=== PATIENT | male | born 1980 | race Caucasian/White ===

== ENCOUNTER 2017-04-29 22:24 | Emergency (ER) | payer OTHER ==
[2017-04-29] MEDS ORDERED: Tetracaine 0.5% 2 ML Bottle ONE (22:35)
[2017-04-29] MEDS ORDERED: Fluorescein 1 MG Ophth Strip ONE (22:35)
[2017-04-29 22:46] VITALS: BP 129/79
[2017-04-29] MEDS ORDERED: Ciprofloxacin 0.3% Ophth Soln 2.5 ML Bottle ONE (23:00)
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
== END 2017-04-29 23:35 | disposition home or self-care (01) ==
LOC: LB.ED 22:24
DX: T26.11XA Burn of cornea and conjunctival sac, right eye, initial encounter (principal); X12.XXXA Contact with other hot fluids, initial encounter; Y93.G3 Activity, cooking and baking; Y92.89 Other specified places as the place of occurrence of the external cause; Y99.0 Civilian activity done for income or pay; F17.210 Nicotine dependence, cigarettes, uncomplicated; Z85.47 Personal history of malignant neoplasm of testis; Z79.899 Other long term (current) drug therapy; Z91.030 Bee allergy status
CPT/HCPCS: 99283; A9270

== ENCOUNTER 2017-04-30 09:25 | Emergency (ER) | payer OTHER ==
[2017-04-30] MEDS ORDERED: Tetracaine 0.5% 2 ML Bottle ONE (17:50)
[2017-04-30 17:54] VITALS: BP 145/80
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
== END 2017-04-30 18:09 | disposition home or self-care (01) ==
LOC: LB.ED 09:25
DX: T26.11XA Burn of cornea and conjunctival sac, right eye, initial encounter (principal); K21.9 Gastro-esophageal reflux disease without esophagitis; Z91.030 Bee allergy status; Z79.899 Other long term (current) drug therapy; Z98.890 Other specified postprocedural states; Z87.891 Personal history of nicotine dependence
CPT/HCPCS: 99282; 99283

== ENCOUNTER 2019-01-30 11:32 | Emergency (ER) | payer OTHER ==
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
--- NOTE | 2019-01-30 14:43 | CR ---
PA AND LATERAL CHEST, 01/30/19 Comparison was made to a prior exam dated 10/17/15. The heart size is normal. The lungs are clear. No pneumothorax. No pleural effusions. No evidence of acute intrathoracic disease. [id number] [facility]
== END 2019-01-30 13:33 | disposition home or self-care (01) ==
LOC: LB.ED 11:32
DX: J01.90 Acute sinusitis, unspecified (principal); F41.9 Anxiety disorder, unspecified; F32.9 Major depressive disorder, single episode, unspecified; Z79.899 Other long term (current) drug therapy; Z91.030 Bee allergy status
CPT/HCPCS: 36415; 71046; 80048; 85025; 87430; 87804; 99283-25